=== PATIENT | female | born 1955 | race Caucasian/White ===

== ENCOUNTER → 2018-05-18 | Outpatient (CLI) | payer BC ==
--- NOTE | 2018-05-18 12:57 | RAD ---
KNEE LEFT 3V History: KNEE PAIN, GAVE OUT GOING UP STAIRS LAST KEMI. Tricompartmental primary osteoarthritis. Severe narrowing of the patellofemoral joint with marginal osteophytes. Smaller osteophytes at the medial and lateral joint compartments without much joint space loss. Subchondral spur noted at the medial femoral condyle. No acute fracture. No aggressive bone destruction. No dislocation. IMPRESSION: Primary osteoarthritis. Electronically signed by: Ean Taylor MD (05/18/2018 12:54 PM) [id number]
== END | disposition home or self-care (01) ==
LOC: RAD 12:22
PROVIDERS: ATTEND Family Medicine
DX: M17.12 Unilateral primary osteoarthritis, left knee (principal); M25.762 Osteophyte, left knee
CPT/HCPCS: 73562

== ENCOUNTER 2019-01-17 10:32 | Emergency (ER) | payer BC ==
[~2019-01-17] VITALS: Ht 167.6 cm; Wt 111.1 kg
[2019-01-17 10:35] VITALS: BP 186/103
[2019-01-17] MEDS ORDERED: HYDROcodone/APAP 5/325MG 1 TAB TABLET PO ONE (11:00)
--- NOTE | 2019-01-17 12:15 | RAD ---
EXAM: LEFT KNEE, 3 VIEWS. HISTORY: Left knee pain. COMPARISON: 05/18/2018. FINDINGS: No fractures are identified. The patella appears laterally subluxed or dislocated. Osteophytosis is severe along the patellofemoral compartment and moderate along the other 2 compartments. There is a moderate joint effusion. IMPRESSION: 1. Correlate for lateral patellar dislocation or subluxation. 2. Moderate to severe patellofemoral compartment predominant joint compartment osteoarthritis. 3. Moderate joint effusion. Electronically signed by: Karina Romo MD (01/17/2019 12:12 PM) [facility]
--- NOTE | 2019-01-17 12:25 | PHYS DOC ---
Adult General Chief Complaint Chief Complaint: MECHANICAL FALL HPI HPI Patient is a 63-year-old female who presents with complaint of left knee pain and some left shoulder pain due to a fall. Patient states that the shoulder pain is only mild and it's the left knee that she is concerned about. She states that the knee had hyperextended, stating that it bent the wrong direction and she has been having a lot of pain in the knee and percent. She rates pain at an 8 out of 10. Patient has been bearing weight on the knee but she states that pain is worsened with weightbearing. Patient states that pain is progressively gotten worse since the injury. She denies any head injury or loss of consciousness.[] Review of Systems Review of Systems Constitutional: Denies fever or chills [] Respiratory: Denies cough or shortness of breath [] Cardiovascular: No additional information not addressed in HPI [] Musculoskeletal: Positive left knee pain [] Integument: Denies rash or skin lesions [] Neurologic: Denies headache, focal weakness or sensory changes [] Current Medications Current Medications Current Medications Medications (Trade) Dose Ordered Sig/Raymon Start Time Stop Time Status Last Admin Dose Admin Acetaminophen/ Hydrocodone Bitart (Lortab 5/325) 1 tab 1X ONCE 01/17/19 11:00 01/17/19 11:54 DC 01/17/19 11:37 1 TAB Allergies Allergies Allergies Coded Allergies Type Severity Reaction Last Updated Verified ibuprofen Allergy Intermediate 01/17/19 Yes Physical Exam Physical Exam Constitutional: Well developed, well nourished, no acute distress, non-toxic appearance. [] HENT: Normocephalic, atraumatic. [] Cardiovascular: Regular rate and rhythm[] Lungs & Thorax: Bilateral breath sounds clear to auscultation [] Extremities: Examination of left knee does demonstrate tenderness to palpation anteriorly over the patella and along the lateral joint line. Patella is freely mobile. Unable to fully assess ligamentous status due to reported pain associated with movement. [] Current Patient Data Vital Signs Vital Signs Date Time Temp Pulse Resp B/P (MAP) Pulse Ox O2 Delivery O2 Flow Rate FiO2 01/17/19 10:32 98.3 107 22 186/103 (130) 97 Room Air EKG EKG [] Radiology/Procedures Radiology/Procedures [] Course & Med Decision Making Course & Med Decision Making Pertinent Labs and Imaging studies reviewed. (See chart for details) After x-ray was completed, patient placed in knee immobilizer by ER nurse and provided with crutches and crutch training. Dragon Disclaimer Dragon Disclaimer This electronic medical record was generated, in whole or in part, using a voice recognition dictation system. Departure Departure: Impression: Primary Impression: Right knee sprain Disposition: HOME, SELF-CARE Condition: STABLE Referrals: COLEMAN COLLADO MD (PCP) Patient Instructions: Knee Sprain Additional Instructions: Call to schedule follow-up appointment with your primary care doctor and obtain consult for orthopedic evaluation. Scripts Hydrocodone Bit/Acetaminophen (NORCO 7.5-325 TABLET) 1 Each Tablet 1 TAB PO PRN Q6HRS PRN for PAIN, #12 TAB 0 Refills Prov: LOUISA GALLEGOS Jr. DO 01/17/19 Problem Qualifiers Primary Impression: Right knee sprain Encounter type: initial encounter Involved ligament of knee: unspecified ligament Qualified Codes: S83.91XA - Sprain of unspecified site of right knee, initial encounter LOUISA GALLEGOS Jr. DO Jan 17, 2019 12:25
[2019-01-17] MEDS ORDERED: HYDR-3166 PO (12:40)
== END 2019-01-17 13:05 | disposition home or self-care (01) ==
LOC: ER 10:32
DX: S83.92XA Sprain of unspecified site of left knee, initial encounter (principal); M25.512 Pain in left shoulder; Z88.6 Allergy status to analgesic agent; W18.39XA Other fall on same level, initial encounter; Y93.89 Activity, other specified; Y92.89 Other specified places as the place of occurrence of the external cause; Y99.8 Other external cause status
CPT/HCPCS: 29505; 73562; 99284

== ENCOUNTER → 2019-10-22 | Outpatient (CLI) | payer MEDICARE, OTHER ==
[~2019-10-22] MED LIST: GABA-586 PO; HYDR-3166 PO; INSU100I13 SQ; INSU100I32 SQ; LEVO137T2 PO; OLME5TAB4 PO; ROSUVASTATIN CA40 MG PO; TRIA1TAB3 PO
== END ==
LOC: LAB 09:10
PROVIDERS: ATTEND Registered Nurse
DX: Z20.828 Contact with and (suspected) exposure to other viral communicable diseases (principal)
CPT/HCPCS: U0003-CS

== ENCOUNTER → 2019-10-26 | Day surgery (SDC) | payer BC, MEDICARE, OTHER ==
[~2019-10-26] MED LIST changes: +IPRATRPIUM/ALBUTEROL 0.5/2.5MG 3 ML NEBU. NEB PRN; +IV RINGERS SOLUTION,LACTATED 1,000 ML IV SCH; +MIDAZOLAM HCL PF 2 MG/2 ML VIAL. IV ONE; +ONDANSETRON PF 4 MG/2 ML VIAL. IV PRN; +PROPOFOL 10,000 MCG/ML (20ML) VIAL IV ONE
[2019-10-26 11:23] VITALS: BP 146/66
== END | disposition home or self-care (01) ==
LOC: SURG 08:28
PROVIDERS: ATTEND Emergency Medicine
DX: Z12.11 Encounter for screening for malignant neoplasm of colon (principal); R13.10 Dysphagia, unspecified; D12.3 Benign neoplasm of transverse colon; D12.4 Benign neoplasm of descending colon; D12.5 Benign neoplasm of sigmoid colon; K44.9 Diaphragmatic hernia without obstruction or gangrene; K21.0 Gastro-esophageal reflux disease with esophagitis; K22.2 Esophageal obstruction; M19.90 Unspecified osteoarthritis, unspecified site; N28.9 Disorder of kidney and ureter, unspecified; G47.33 Obstructive sleep apnea (adult) (pediatric); E11.9 Type 2 diabetes mellitus without complications; I11.0 Hypertensive heart disease with heart failure; I50.9 Heart failure, unspecified; E78.00 Pure hypercholesterolemia, unspecified; E66.01 Morbid (severe) obesity due to excess calories; Z86.010 Personal history of colon polyps; Z79.899 Other long term (current) drug therapy; Z98.890 Other specified postprocedural states; Z68.35 Body mass index [BMI] 35.0-35.9, adult; Z79.4 Long term (current) use of insulin; Z88.6 Allergy status to analgesic agent; Z88.8 Allergy status to other drugs, medicaments and biological substances
CPT/HCPCS: 43239; 43450; 45380; 82947; J2704; J7120

== ENCOUNTER → 2019-11-03 | Outpatient (CLI) | payer MEDICARE ==
[2019-10-26 11:23] VITALS: BP 146/66
[~2019-11-03] MED LIST changes: -IPRATRPIUM/ALBUTEROL 0.5/2.5MG 3 ML NEBU. NEB PRN; -IV RINGERS SOLUTION,LACTATED 1,000 ML IV SCH; -MIDAZOLAM HCL PF 2 MG/2 ML VIAL. IV ONE; -ONDANSETRON PF 4 MG/2 ML VIAL. IV PRN; -PROPOFOL 10,000 MCG/ML (20ML) VIAL IV ONE
--- NOTE | 2019-11-03 14:27 | RAD ---
EXAM: Nuclear gastric emptying scan. HISTORY: Nausea, vomiting. Reflux. COMPARISON: None. TECHNIQUE: Serial static images were obtained over the stomach following oral administration of 1.9 mCi 99m-Tc sulfur colloid. FINDINGS: The stomach empties into the small bowel without evidence of reflux in the area of the esophagus. There is 63 percent retained tracer activity within stomach at one hour (normal 34.8 percent to 91 percent). There is 42 percent retained tracer activity within stomach at 2 hours (normal 2.7 percent to 60 percent). There is 26 percent retained tracer activity within stomach at 3 hours (normal 0.5 percent to 28 percent). There is 22 percent retained tracer activity within stomach at 4 hours (normal 0.0 percent to 10 percent). The estimated time for half emptying of gastric contents, i.e. 'gastric emptying time' is 100 minutes (normal is 66 +/- 22 minutes). IMPRESSION: Delayed gastric emptying half-time and delayed gastric emptying at 4 hours. The gastric emptying at 1 hour and 2 hours and 3 hours is within normal limits. Electronically signed by: Krista Samaniego MD (11/03/2019 2:25 PM) [facility]
== END | disposition home or self-care (01) ==
LOC: NM 09:15
PROVIDERS: ATTEND Emergency Medicine
DX: K21.0 Gastro-esophageal reflux disease with esophagitis (principal); K22.2 Esophageal obstruction; K29.60 Other gastritis without bleeding
CPT/HCPCS: 78264; A9541